=== PATIENT | male | born 1990 | race African-American/Black ===

== ENCOUNTER 2024-10-26 21:44 | Emergency (ER) | payer SELFPAY ==
[~2024-10-26] VITALS: Ht 182.9 cm; Wt 71.0 kg
[2024-10-26 22:19] VITALS: O2SAT 100
[2024-10-26 23:09] LABS: BASOPHILS % 0.4 % (0.0-2.0); EOSINOPHILS % 0.0 % (0.0-5.0); HEMATOCRIT. 45.9 % (42.0-52.0); HEMOGLOBIN. 15.5 g/dL (14.0-18.0); LYMPHOCYTES % 13.3 % (20.0-50.0); MEAN PLATELET VOLUME 7.8 fl (7.4-10.4); MONOCYTES % 11.1 % (2.0-8.0); NEUTROPHILS % 75.2 % (40.0-76.0); PLATELET 233 x1000/uL (130-400); RED BLOOD CELL COUNT 4.90 mill/uL (4.7-6.1); RED CELL DISTRIBUTION WIDTH 14.2 % (11.6-14.6)
[2024-10-26 23:14] LABS: CREATININE 1.2 mg/dL (0.6-1.3)
[2024-10-26 23:15] LABS: UREA NITROGEN BLOOD 20 mg/dL (9-23)
[2024-10-26 23:16] LABS: ASPARTATE AMINOTRANSFERASE 75 IU/L (<34)
[2024-10-26 23:17] LABS: BILIRUBIN DIRECT 0.3 mg/dL (<=3.0); BILIRUBIN TOTAL 1.1 mg/dL (0.1-1.0); PROTEIN TOTAL 8.4 g/dL (6.0-8.3)
[2024-10-26] MEDS ORDERED: DICYCLOMINE 10 MG/5 ML ORAL SYR PO STA (23:45)
[2024-10-27] MEDS: FAMOTIDINE 20MG TABLET PO ONE (00:13)
[2024-10-27] MEDS: DICYCLOMINE HCL 10MG CAPSULE PO NR (00:13)
[2024-10-27] MEDS: MAGNESIUM/ALUMINUM HYDROXIDE/SIMETHICONE 30ML UDC PO STA (00:13)
[2024-10-27] MEDS: SODIUM CHLORIDE 0.9% 1,000 ML IV ONE (00:36)
[2024-10-27] MEDS: ONDANSETRON HCL 4MG/2ML INJ IV STA (00:36)
[2024-10-27] MEDS: KETOROLAC 30MG/ML VIAL IV STA (00:36)
[2024-10-27] MEDS ORDERED: ONDA-239 PO (01:43)
[2024-10-27 02:01] VITALS: BP 98/59; PULSE 65; RESP 12; TEMP 37.4; O2SAT 100
== END 2024-10-27 02:09 | disposition home or self-care (01) ==
LOC: ER 21:44
DX: A08.4 Viral intestinal infection, unspecified (principal); E86.0 Dehydration
CPT/HCPCS: 80076; 80048; 83690; 85025; 36415; 99284; 96361; 96374; J7030; J1885; J2405; Z7610 ×2